=== PATIENT | male | born 1985 | race African-American/Black ===

== ENCOUNTER 2023-12-27 09:25 | Emergency (ER) | payer MEDICAID ==
[~2023-12-27] VITALS: Ht 185.4 cm; Wt 114.0 kg
[2023-12-27 09:29] VITALS: BP 155/95; PULSE 84; RESP 16; TEMP 99.1; O2SAT 100
[2023-12-27] MEDS: DOXYCYCLINE HYCLATE 100MG CAPSULE PO ONE (10:47)
[2023-12-27 11:24] LABS: BASOPHILS % 0.5 % (0.0-2.0); EOSINOPHILS % 2.1 % (0.0-5.0); HEMATOCRIT. 43.6 % (42.0-52.0); HEMOGLOBIN. 14.6 g/dL (14.0-18.0); LYMPHOCYTES % 22.9 % (20.0-50.0); MEAN CORPUSCULAR HEMOGLOBIN 31.7 pg (28.0-32.0); MEAN CORPUSCULAR HGB CONC 33.5 g/dL (31.0-37.0); MEAN CORPUSCULAR VOLUME 94.7 fL (80.0-94.0); MEAN PLATELET VOLUME 8.1 fl (7.4-10.4); MONOCYTES % 6.5 % (2.0-8.0); PLATELET 402 x1000/uL (130-400); RED CELL DISTRIBUTION WIDTH 13.5 % (11.6-14.6); WHITE BLOOD COUNT 8.7 x1000/uL (4.5-11.0)
[2023-12-27 11:37] LABS: CHLORIDE 108 mEq/L (98-107); POTASSIUM 3.3 mEq/L (3.5-5.1); SODIUM 141 mEq/L (136-145)
[2023-12-27 11:38] LABS: CALCIUM 9.3 mg/dL (8.7-10.4); CARBON DIOXIDE 26 mEq/L (21-32)
[2023-12-27 11:43] LABS: GLUCOSE 94 mg/dL (70-105); UREA NITROGEN BLOOD 9 mg/dL (9-23)
[2023-12-27] MEDS ORDERED: MUPI1OIN4 TP (12:09)
[2023-12-27] MEDS ORDERED: DOXY100C5 MT (12:09)
[2023-12-27] MEDS ORDERED: HYDR25SU37 RC (12:09)
[2023-12-27] MEDS: POTASSIUM CHLORIDE 20MEQ TABLET SR PO ONE (12:42)
== END 2023-12-27 12:55 | disposition home or self-care (01) ==
LOC: ER 09:25
DX: K64.4 Residual hemorrhoidal skin tags (principal); Z79.899 Other long term (current) drug therapy
CPT/HCPCS: 36415; 80048; 85025; 99283

== ENCOUNTER 2024-05-04 18:08 | Emergency (ER) | payer SELFPAY ==
[~2024-05-04] VITALS: Ht 182.9 cm; Wt 105.0 kg
[~2024-05-04 18:08] MED LIST: DOXY100C5 MT; HYDR25SU37 RC; MUPI1OIN4 TP
[2024-05-04 18:10] VITALS: O2SAT 99
[2024-05-04 19:55] VITALS: BP 135/76; PULSE 110; RESP 18; TEMP 36.66960; O2SAT 99
[2024-05-05] MEDS ORDERED: ACET-2708 MT (03:09)
== END 2024-05-04 20:02 | disposition home or self-care (01) ==
LOC: ER 18:08
DX: Z00.00 Encounter for general adult medical examination without abnormal findings (principal); F20.9 Schizophrenia, unspecified
CPT/HCPCS: 99283

== ENCOUNTER 2024-05-04 21:12 | Emergency (ER) | payer SELFPAY ==
[2024-05-05] MEDS ORDERED: ACET-2708 MT (03:09)
== END 2024-05-04 23:43 | disposition left against medical advice (07) ==
LOC: ER 21:12
DX: Z00.00 Encounter for general adult medical examination without abnormal findings (principal); Z53.21 Procedure and treatment not carried out due to patient leaving prior to being seen by health care provider

== ENCOUNTER 2024-05-05 00:22 | Emergency (ER) | payer SELFPAY ==
[~2024-05-05] VITALS: Ht 185.4 cm; Wt 109.0 kg
[2024-05-05 00:45] VITALS: BP 164/88; PULSE 88; RESP 16; TEMP 98.3; O2SAT 99
[2024-05-05 02:22] LABS: CLARITY URINE CLEAR (CLEAR); COLOR URINE YELLOW (YELLOW); GLUCOSE URINE NEGATIVE (NEGATIVE); KETONES URINE TRACE (NEGATIVE); LEUKOCYTE ESTERASE URINE TRACE (NEGATIVE); NITRITE URINE NEGATIVE (NEGATIVE); OCCULT BLOOD URINE NEGATIVE (NEGATIVE); PROTEIN URINE TRACE (NEGATIVE); SPECIFIC GRAVITY URINE 1.028 (1.005-1.030)
[2024-05-05 02:37] LABS: *AMPHETAMINES SCREEN URINE PRESUMPTIVE POSITIVE (NEGATIVE)
[2024-05-05 02:38] LABS: *BARBITURATES SCREEN URINE NEGATIVE (NEGATIVE); *BENZODIAZEPINES SCREEN URINE NEGATIVE (NEGATIVE); *COCAINE SCREEN URINE NEGATIVE (NEGATIVE); CANNABINOID URINE SCREEN PRESUMPTIVE POSITIVE (NEGATIVE); ECSTASY MDMA SCREEN URINE CONF.TEST INDICATED (NEGATIVE); METHADONE URINE SCREEN NEGATIVE (NEGATIVE); OPIATES URINE SCREEN NEGATIVE (NEGATIVE); PHENCYCLIDINE URINE SCREEN NEGATIVE (NEGATIVE)
[2024-05-05 02:58] LABS: CHLORIDE 105 mEq/L (98-107); POTASSIUM 3.5 mEq/L (3.5-5.1); SODIUM 140 mEq/L (136-145)
[2024-05-05 02:59] LABS: CALCIUM 9.6 mg/dL (8.7-10.4); CARBON DIOXIDE 29 mEq/L (21-32)
[2024-05-05 03:04] LABS: CREATININE 1.2 mg/dL (0.6-1.3); GLUCOSE 100 mg/dL (70-105); UREA NITROGEN BLOOD 15 mg/dL (9-23)
[2024-05-05 03:07] LABS: TROPONIN I HIGH SENSITIVITY 7 ng/L (3.0-53)
[2024-05-05] MEDS ORDERED: ACET-2708 MT (03:09)
[2024-05-05 03:13] LABS: BASOPHILS % 0.5 % (0.0-2.0); EOSINOPHILS % 1.3 % (0.0-5.0); HEMATOCRIT. 46.9 % (42.0-52.0); HEMOGLOBIN. 16.1 g/dL (14.0-18.0); MEAN CORPUSCULAR HEMOGLOBIN 31.9 pg (28.0-32.0); MEAN CORPUSCULAR HGB CONC 34.3 g/dL (31.0-37.0); MEAN CORPUSCULAR VOLUME 93.1 fL (80.0-94.0); MEAN PLATELET VOLUME 7.8 fl (7.4-10.4); MONOCYTES % 7.4 % (2.0-8.0); NEUTROPHILS % 65.8 % (40.0-76.0); PLATELET 404 x1000/uL (130-400); RED BLOOD CELL COUNT 5.04 mill/uL (4.7-6.1); RED CELL DISTRIBUTION WIDTH 13.5 % (11.6-14.6); WHITE BLOOD COUNT 9.5 x1000/uL (4.5-11.0)
[2024-05-05 03:35] LABS: ETHANOL BLOOD < 10 mg/dL (<10)
[2024-05-05 03:49] LABS: RBC URINE 0-2 /hpf (0-2); WBC URINE 0-2 /hpf (0-2)
[2024-05-05 03:50] LABS: BACTERIA URINE NONE SEEN; SQUAMOUS EPITHELIAL CELL URINE NONE SEEN /lpf (RARE/1+)
== END 2024-05-05 04:05 | disposition home or self-care (01) ==
LOC: ER 00:22
DX: F41.9 Anxiety disorder, unspecified (principal); R07.9 Chest pain, unspecified
CPT/HCPCS: 36415; 80048; 80305; 80320; 81003; 84484; 85025; 93005; 99284; G0480

== ENCOUNTER 2024-07-14 02:53 | Emergency (ER) | payer SELFPAY ==
[~2024-07-14] VITALS: Ht 185.4 cm; Wt 91.0 kg
[~2024-07-14 02:53] MED LIST changes: +ACET-2708 MT
[2024-07-14 02:56] VITALS: BP 144/89; PULSE 84; RESP 16; TEMP 37.1; O2SAT 99
[2024-07-14 03:25] LABS: DIFFERENTIAL COMMENT 0; EOSINOPHILS % 1.7 % (0.0-5.0); HEMATOCRIT. 45.3 % (42.0-52.0); HEMOGLOBIN. 15.2 g/dL (14.0-18.0); LYMPHOCYTES % 25.5 % (20.0-50.0); MEAN CORPUSCULAR HEMOGLOBIN 30.8 pg (28.0-32.0); MEAN CORPUSCULAR HGB CONC 33.7 g/dL (31.0-37.0); MEAN CORPUSCULAR VOLUME 91.5 fL (80.0-94.0); MEAN PLATELET VOLUME 8.2 fl (7.4-10.4); NEUTROPHILS % 63.8 % (40.0-76.0); PLATELET 337 x1000/uL (130-400); RED BLOOD CELL COUNT 4.95 mill/uL (4.7-6.1); RED CELL DISTRIBUTION WIDTH 13.3 % (11.6-14.6); WHITE BLOOD COUNT 8.5 x1000/uL (4.5-11.0)
[2024-07-14 03:35] LABS: CHLORIDE 109 mEq/L (98-107); POTASSIUM 3.3 mEq/L (3.5-5.1); SODIUM 144 mEq/L (136-145)
[2024-07-14 03:36] LABS: CARBON DIOXIDE 27 mEq/L (21-32)
[2024-07-14 03:37] LABS: CALCIUM 9.1 mg/dL (8.7-10.4)
[2024-07-14 03:41] LABS: CREATININE 0.9 mg/dL (0.6-1.3); GLUCOSE 104 mg/dL (70-105)
[2024-07-14 03:42] LABS: UREA NITROGEN BLOOD 13 mg/dL (9-23)
[2024-07-14 03:43] LABS: TROPONIN I HIGH SENSITIVITY 8 ng/L (3.0-53)
[2024-07-14 06:12] LABS: CLARITY URINE CLEAR (CLEAR); COLOR URINE YELLOW (YELLOW); GLUCOSE URINE NEGATIVE (NEGATIVE); KETONES URINE TRACE (NEGATIVE); LEUKOCYTE ESTERASE URINE NEGATIVE (NEGATIVE); NITRITE URINE NEGATIVE (NEGATIVE); OCCULT BLOOD URINE NEGATIVE (NEGATIVE); PH URINE 5.5 (4.5-8.0); PROTEIN URINE NEGATIVE (NEGATIVE); SPECIFIC GRAVITY URINE 1.028 (1.005-1.030)
== END 2024-07-14 04:38 | disposition home or self-care (01) ==
LOC: ER 02:53
DX: R00.2 Palpitations (principal); R07.89 Other chest pain; E87.6 Hypokalemia; F17.290 Nicotine dependence, other tobacco product, uncomplicated; F20.9 Schizophrenia, unspecified; I45.10 Unspecified right bundle-branch block
CPT/HCPCS: 36415; 80048; 81003; 84484; 85025; 93005; 99284

== ENCOUNTER 2024-07-28 17:36 | Emergency (ER) | payer MEDICAID ==
[~2024-07-28] VITALS: Ht 180.3 cm; Wt 95.0 kg
[2024-07-28 17:40] VITALS: O2SAT 100
[2024-07-28 20:38] LABS: BASOPHILS % 0.6 % (0.0-2.0); EOSINOPHILS % 1.3 % (0.0-5.0); HEMATOCRIT. 42.3 % (42.0-52.0); HEMOGLOBIN. 14.1 g/dL (14.0-18.0); LYMPHOCYTES % 17.7 % (20.0-50.0); MEAN CORPUSCULAR HEMOGLOBIN 30.6 pg (28.0-32.0); MEAN CORPUSCULAR HGB CONC 33.4 g/dL (31.0-37.0); MEAN CORPUSCULAR VOLUME 91.7 fL (80.0-94.0); MEAN PLATELET VOLUME 8.1 fl (7.4-10.4); MONOCYTES % 8.5 % (2.0-8.0); NEUTROPHILS % 71.9 % (40.0-76.0); PLATELET 383 x1000/uL (130-400); RED BLOOD CELL COUNT 4.61 mill/uL (4.7-6.1); RED CELL DISTRIBUTION WIDTH 13.2 % (11.6-14.6); WHITE BLOOD COUNT 11.3 x1000/uL (4.5-11.0)
[2024-07-28 20:43] LABS: CARBON DIOXIDE 27 mEq/L (21-32); CHLORIDE 111 mEq/L (98-107); POTASSIUM 3.7 mEq/L (3.5-5.1); SODIUM 143 mEq/L (136-145)
[2024-07-28 20:44] LABS: CALCIUM 9.3 mg/dL (8.7-10.4)
[2024-07-28 20:48] LABS: CREATININE 0.9 mg/dL (0.6-1.3); GLUCOSE 86 mg/dL (70-105)
[2024-07-28 20:49] LABS: UREA NITROGEN BLOOD 8 mg/dL (9-23)
[2024-07-28 20:50] LABS: ALANINE AMINOTRANSFERASE 38 IU/L (10-49); ALBUMIN 3.8 g/dL (3.2-4.8); ASPARTATE AMINOTRANSFERASE 55 IU/L (<34)
[2024-07-28 20:51] LABS: BILIRUBIN DIRECT 0.2 mg/dL (<=3.0); BILIRUBIN TOTAL 0.7 mg/dL (0.1-1.0); PROTEIN TOTAL 6.7 g/dL (6.0-8.3)
[2024-07-28 21:55] VITALS: BP 152/89; PULSE 85; RESP 18; TEMP 36.7; O2SAT 100
== END 2024-07-28 22:00 | disposition home or self-care (01) ==
LOC: ER 17:36
DX: Z11.8 Encounter for screening for other infectious and parasitic diseases (principal); F17.200 Nicotine dependence, unspecified, uncomplicated; F20.9 Schizophrenia, unspecified; R21 Rash and other nonspecific skin eruption; R19.7 Diarrhea, unspecified
CPT/HCPCS: 36415; 80048; 80076; 85025; 99283